=== PATIENT | female | born 1980 | race Caucasian/White ===

== ENCOUNTER 2018-12-13 18:30 | Emergency (ER) | payer BC, OTHER ==
[2018-12-13 18:45] VITALS: BP 138/92
--- NOTE | 2018-12-13 18:49 | UC ---
Dizzy HPI HPI Summary: The patient is a 38-year-old female that started feeling dizzy about 9 AM this morning. She has no vertigo. She has had some palpitations. His had some tremors. Had no nausea vomiting or diarrhea. She denies any headache. She denies any chest pain or shortness of breath. Eyes any recent illness. She denies any fever or chills. She went home early from work today. She took a 3 hour nap. He feels better. She still has some palpitations and dizziness. He denies any earache. She denies any ringing or roaring in her ears. Remote history of hyperthyroidism due to He's thyroiditis. She has not had her thyroid functions checked recently. Denies any history of anemia. - History Of Current Complaint Chief Complaint: UCDizziness Stated Complaint: DIZZY/SHAKY Time Seen by Provider: 12/13/18 18:48 Hx Obtained From: Patient Hx Last Menstrual Period: bleeds 3 weeks q month Onset/Duration: Gradual Onset, Lasting Hours Timing: Constant Severity Initially: Moderate Severity Currently: Mild Pain Intensity: 0 Pain Scale Used: 0-10 Numeric Character: Lightheaded, Weak, Dizzy Aggravating Factor(s): Supine To Erect Alleviating Factor(s): Lying Down Associated Signs And Symptoms: Positive: Palpitations. Negative: Nausea, Vomiting, Diaphoresis, Tinnitus, Chest Pain, SOB, Unsteady Gait, Visual Changes , Decreased Oral Intake, Change In Medication, Change In Diet, OTC Medications - Allergies/Home Medications Allergies/Adverse Reactions: Allergies Allergy/AdvReac Type Severity Reaction Status Date / Time Penicillins Allergy GI Upset Verified 12/13/18 18:35 Home Medications: Home Medications Etonogestrel [Nexplanon] 68 mg IMPLANT ONCE 12/13/18 [History Confirmed 12/13/18 ] PMH/Surg Hx/FS Hx/Imm Hx Previously Healthy: Yes Endocrine History: Hyperthyroidism - remote hx - Surgical History Surgical History: None - Family History Known Family History: Positive: Cardiac Disease, Hypertension, Diabetes - Social History Alcohol Use: Rare Substance Use Type: None Smoking Status (MU): Heavy Every Day Tobacco Smoker Type: Cigarettes Amount Used/How Often: 1/2 ppd Review of Systems All Other Systems Reviewed And Are Negative: Yes Constitutional: Positive: Fatigue Skin: Positive: Negative Eyes: Positive: Negative ENT: Positive: Negative Respiratory: Positive: Negative Cardiovascular: Positive: Palpitations Gastrointestinal: Positive: Negative Genitourinary: Positive: Negative Motor: Positive: Negative Neurovascular: Positive: Negative Musculoskeletal: Positive: Negative Neurological: Positive: Weakness Psychological: Positive: Negative Physical Exam Triage Information Reviewed: Yes Appearance: Well-Appearing, No Pain Distress, Well-Nourished Vital Signs: Initial Vital Signs Temp 98 F 12/13/18 18:36 Pulse 63 12/13/18 18:36 Resp 18 12/13/18 18:36 BP 120/67 12/13/18 18:36 Pulse Ox 99 12/13/18 18:36 Vital Signs Reviewed: Yes Eyes: Positive: Conjunctiva Clear ENT: Positive: Hearing grossly normal, TMs normal, Uvula midline. Negative: Nasal congestion, Nasal drainage, Tonsillar swelling, Tonsillar exudate, Trismus , Muffled voice, Hoarse voice, Dental tenderness, Sinus tenderness Dental Exam: Normal Neck: Positive: Supple, Nontender, No Lymphadenopathy, Other: - no thyromegaly Respiratory: Positive: Lungs clear, Normal breath sounds, No respiratory distress, No accessory muscle use Cardiovascular: Positive: RRR, No Murmur Musculoskeletal: Positive: ROM Intact, No Edema Neurological: Positive: Alert, Muscle Tone Normal, Fatigued, Other: - slight tremors, non focal neurologic exam Skin Exam: Normal Diagnostics - EKG Cardiac Rate: NL Cardiac Rhythm: Sinus: Normal Ectopy: None ST Segment: Normal Dizzy Course/Dx - Course Course Of Treatment: neg orthostatics - Differential Dx/Diagnosis Provider Diagnosis: Dizziness, nonspecific, Palpitations Discharge - Sign-Out/Discharge Documenting (check all that apply): Patient Departure All imaging exams completed and their final reports reviewed: No Studies - Discharge Plan Condition: Stable Disposition: HOME Patient Education Materials: Heart Palpitations (ED), Dizziness (ED) Forms: *Work Release Referrals: Katie Maurice MD [Primary Care Provider] - 1 Day (if not better) Additional Instructions: to er for new or worsening symptoms EKG was normal - Billing Disposition and Condition Condition: STABLE Disposition: Home
[2018-12-14 10:59] LABS: ABS Basophils 0.1 10^3/ul (0-0.2); ABS Eosinophils 0.4 10^3/ul (0-0.6); ABS Lymphocytes 2.2 10^3/ul (1.0-4.8); ABS Monocytes 0.8 10^3/ul (0-0.8); ABS Neutrophils 5.4 10^3/ul (1.5-7.7); ABS Nucleated RBC 0 10^3/ul; Eosinophil % 4.1 %; Hematocrit 43 % (35-47); Mean Corpuscular HGB Conc 35 g/dl (31-36); Mean Corpuscular Hemoglobin 34 pg (27-31); Mean Corpuscular Volume 97 fL (80-97); Mean Platelet Volume 10.1 fL (7.4-10.4); Nucleated Red Blood Cells % 0.1; Platelet Count 250 10^3/ul (150-450); Red Blood Count 4.45 10^6/ul (4.00-5.40); Red Cell Distribution Width 13 % (10.5-15); White Blood Count 8.9 10^3/ul (3.5-10.8)
[2018-12-14 11:05] LABS: Calcium 9.4 mg/dL (8.6-10.3); Potassium 3.7 mmol/L (3.5-5.0)
[2018-12-14 11:10] LABS: BUN/Creatinine Ratio 12.9 (8-20); EGFR African American 91.6 (>60); EGFR Non-African American 75.7 (>60)
[2018-12-14 11:31] LABS: TSH (Thyroid Stimulating Horm) 31.1 mcIU/mL (0.34-5.60)
--- NOTE | 2018-12-15 07:22 | UC ---
- Progress Note Progress Note: Reviewed labs from 12/13/18 - Elevated TSH. Needs more labs and follow up with PCP as soon as possible for work up for hypothyroidism. If dizziness and/or palpiatations worsen go the ER for further work up. Remaining labs unremarkable - Results/Orders Results/Orders: TSH: 31 Course/Dx - Diagnoses Provider Diagnoses: Dizziness, nonspecific, Palpitations Discharge - Sign-Out/Discharge Documenting (check all that apply): Post-Discharge Follow Up All imaging exams completed and their final reports reviewed: No Studies - Discharge Plan Condition: Stable Disposition: HOME Patient Education Materials: Heart Palpitations (ED), Dizziness (ED) Forms: *Work Release Referrals: Katie Maurice MD [Primary Care Provider] - 1 Day (if not better) Additional Instructions: to er for new or worsening symptoms EKG was normal - Billing Disposition and Condition Condition: STABLE Disposition: Home
== END 2018-12-13 19:20 | disposition home or self-care (01) ==
LOC: UCCORT 18:30
DX: R42 Dizziness and giddiness (principal); R00.2 Palpitations; R25.1 Tremor, unspecified; F17.210 Nicotine dependence, cigarettes, uncomplicated; Z88.0 Allergy status to penicillin; Z86.39 Personal history of other endocrine, nutritional and metabolic disease
CPT/HCPCS: 36415; 80048; 84443; 85025; 93005; 99212; G0463

== ENCOUNTER 2019-08-23 09:50 | Emergency (ER) | payer BC ==
[2019-08-23 09:59] VITALS: BP 114/67
--- NOTE | 2019-08-23 10:08 | UC ---
Palpitation/Dysrhythmia HP - HPI Summary HPI Summary: 39-year-old female presents with 3 day history of feeling dizzy and lightheaded with occasional episodes of palpitations that will last for several minutes. States she has had similar episodes in the past but none have ever lasted this long. States they typically will resolve after a few minutes to a couple of hours. She has a history of tachycardia unknown origin for which she takes propanolol. Denies fever, chills, headache, visual disturbances, facial droop, slurred or difficulty speaking, weakness, numbness, tingling of the extremities , chest pain, shortness of breath, abdominal pain, nausea, vomiting, or diarrhea. - History of Current Complaint Chief Complaint: UCGeneralIllness Stated Complaint: DIZZY Time Seen by Provider: 08/23/19 10:02 Hx Obtained From: Patient Hx Last Menstrual Period: 08/09/19 Pain Intensity: 0 - Allergy/Home Medications Allergies/Adverse Reactions: Allergies Allergy/AdvReac Type Severity Reaction Status Date / Time Penicillins Allergy GI Upset Verified 08/23/19 09:59 Home Medications: Home Medications ALPRAZolam [Alprazolam] 0.25 mg PO TID PRN 08/23/19 [History Confirmed 08/23/19] Levothyroxine Sodium [Synthroid] 50 mcg PO DAILY 08/23/19 [History Confirmed 01/10] Propranolol HCl 10 mg PO BID 08/23/19 [History Confirmed 08/23/19] PMH/Surg Hx/FS Hx/Imm Hx Endocrine History: Thyroid Disease Cardiovascular History: Other - Tachycardia - Surgical History Surgical History: None - Family History Known Family History: Positive: Cardiac Disease, Hypertension, Diabetes - Social History Occupation: Employed Full-time Lives: With Family Alcohol Use: Rare Substance Use Type: None Smoking Status (MU): Heavy Every Day Tobacco Smoker Type: Cigarettes Amount Used/How Often: 1/2 ppd Review of Systems All Other Systems Reviewed And Are Negative: Yes Constitutional: Negative: Fever, Chills Eyes: Negative: Blurred Vision, Diplopia, Photophobia ENT: Negative: Sore Throat, Ear Ache, Nasal Discharge, Sinus Congestion, Sinus Pain/Tenderness Respiratory: Negative: Shortness Of Breath, Cough Cardiovascular: Positive: Palpitations. Negative: Chest Pain Gastrointestinal: Negative: Abdominal Pain, Vomiting, Diarrhea, Nausea Genitourinary: Positive: Negative Musculoskeletal: Positive: Negative Neurological: Negative: Headache, Weakness, Paresthesia, Numbness Is Patient Immunocompromised?: No Physical Exam - Summary Physical Exam Summary: GENERAL APPEARANCE: Well developed, well nourished, alert and cooperative, and appears to be in no acute distress. EYES: Conjunctiva clear. No drainage. PERRL, EOM intact. Vision is grossly intact. EARS: External auditory canals and tympanic membranes clear, hearing grossly intact. NOSE: No nasal discharge. THROAT: Pharynx normal No tonsilar inflammation, swelling, exudate, or lesions. Uvula midline. Oral cavity normal. Teeth and gingiva in good general condition. NECK: Neck supple, non-tender without lymphadenopathy. CARDIAC: Normal S1 and S2. No S3, S4 or murmurs. Rhythm is regular. There is no peripheral edema, cyanosis or pallor. Extremities are warm and well perfused. Capillary refill is less than 2 seconds. Peripheral pulses intact. LUNGS: Clear to auscultation without rales, rhonchi, wheezing or diminished breath sounds. ABDOMEN: Positive bowel sounds. Soft, nondistended, nontender. No guarding or rebound. No masses or hepatosplenomegally. MUSKULOSKELETAL: ROM intact to all extremities. No joint erythema or tenderness. Normal muscular development. Normal gait. NEUROLOGICAL: CN II-XII intact. Strength and sensation symmetric and intact throughout. SKIN: Skin normal color, texture and turgor with no lesions or eruptions. Triage Information Reviewed: Yes Vital Signs: Initial Vital Signs Temp 98 F 08/23/19 09:51 Pulse 72 08/23/19 09:51 Resp 16 08/23/19 09:51 BP 114/67 08/23/19 09:51 Pulse Ox 99 08/23/19 09:51 Vital Signs Reviewed: Yes Diagnostics - EKG Cardiac Rate: NL - Rate 72 Cardiac Rhythm: Sinus: Normal Ectopy: None ST Segment: Normal EKG Comparison: No Significant Change - 12/13/2018 Palpitations Course/Dx - Course Course Of Treatment: 39-year-old female presents with 3 day history of feeling dizzy and lightheaded with occasional episodes of palpitations that will last for several minutes. States she has had similar episodes in the past but none have ever lasted this long. States they typically will resolve after a few minutes to a couple of hours. She has a history of tachycardia unknown origin for which she takes propanolol. Denies fever, chills, headache, visual disturbances, facial droop, slurred or difficulty speaking, weakness, numbness, tingling of the extremities , chest pain, shortness of breath, abdominal pain, nausea, vomiting, or diarrhea. Afebrile. Vital signs stable. Patient was neurologically intact and her exam was overall unremarkable. Twelve-lead EKG showed a normal sinus rhythm at a rate of 72 without ectopy, ST elevation, or T-wave abnormalities. This is unchanged from her previous EKG on 12/13/2018 when she presented for similar symptoms. Discussed with the patient that with her history of thyroid disease and tachycardia that we were not able to adequately assessing her symptoms at this facility at this time and I'm recommending that she be evaluated in the emergency room. She is agreeable to this and has elected to transport via private vehicle. - Differential Dx/Diagnosis Differential Diagnosis/HQI/PQRI: Medication Induced, Panic Disorder, Paroxymal SVT, V-Tach Provider Diagnosis: Dizziness, Palpitations Discharge ED - Sign-Out/Discharge Documenting (check all that apply): Patient Departure All imaging exams completed and their final reports reviewed: No Studies - Discharge Plan Condition: Stable Disposition: HOME-RECOMMEND TO ED Patient Education Materials: Heart Palpitations (ED) Referrals: Katie Maurice MD [Primary Care Provider] - Additional Instructions: We are unable to evaluate you adequately at this facility for the potential causes of your symptoms. I am recommending that you be evaluated in the emergency room at this time. Please go directly to the emergency room from here. - Billing Disposition and Condition Condition: STABLE Disposition: Home-Recommend to ED
== END 2019-08-23 10:25 | disposition home health service (06) ==
LOC: UCCORT 09:50
DX: R42 Dizziness and giddiness (principal); R00.2 Palpitations; R00.0 Tachycardia, unspecified; E07.9 Disorder of thyroid, unspecified; F17.210 Nicotine dependence, cigarettes, uncomplicated; Z88.0 Allergy status to penicillin; Z79.890 Hormone replacement therapy
CPT/HCPCS: 93005; 99212; G0463

== ENCOUNTER 2019-10-05 15:56 | Emergency (ER) | payer BC ==
[2019-10-05 16:09] VITALS: BP 127/76
--- NOTE | 2019-10-05 16:15 | UC ---
Throat Pain/Nasal Fady HPI - HPI Summary HPI Summary: 39-year-old female with a sore throat over the past few days. Denies any fever or chills. No nausea vomiting or diarrhea. She is a smoker. - History of Current Complaint Chief Complaint: UCGeneralIllness Stated Complaint: SORE THROAT Time Seen by Provider: 10/05/19 16:00 Hx Obtained From: Patient Hx Last Menstrual Period: 1 week ?: No Onset/Duration: Gradual Onset Severity: Mild Pain Intensity: 7 Cough: None Associated Signs & Symptoms: Positive: Negative Related History: Smoking - Allergies/Home Medications Allergies/Adverse Reactions: Allergies Allergy/AdvReac Type Severity Reaction Status Date / Time Penicillins Allergy GI Upset Verified 10/05/19 16:11 PMH/Surg Hx/FS Hx/Imm Hx Previously Healthy: Yes Endocrine History: Thyroid Disease - Surgical History Surgical History: None - Family History Known Family History: Positive: Cardiac Disease, Hypertension, Diabetes - Social History Lives: With Family Alcohol Use: Rare Substance Use Type: None Smoking Status (MU): Heavy Every Day Tobacco Smoker Type: Cigarettes Amount Used/How Often: 1/2 ppd Review of Systems All Other Systems Reviewed And Are Negative: Yes ENT: Positive: Sore Throat Is Patient Immunocompromised?: No Physical Exam Triage Information Reviewed: Yes Appearance: Well-Appearing, No Pain Distress, Well-Nourished Vital Signs: Initial Vital Signs Temp 98.7 F 10/05/19 16:06 Pulse 77 10/05/19 16:06 Resp 16 10/05/19 16:06 BP 127/76 10/05/19 16:06 Pulse Ox 99 10/05/19 16:06 Vital Signs Reviewed: Yes Eyes: Positive: Conjunctiva Clear ENT: Positive: Hearing grossly normal, Pharyngeal erythema - Minimal pharyngeal erythema., TMs normal, Uvula midline Neck: Positive: Supple, Nontender, No Lymphadenopathy Respiratory: Positive: Lungs clear, Normal breath sounds, No respiratory distress, No accessory muscle use Cardiovascular: Positive: RRR, No Murmur, Pulses Normal, Brisk Capillary Refill Musculoskeletal Exam: Normal Neurological Exam: Normal Psychological Exam: Normal Skin Exam: Normal Throat Pain/Nasal Course/Dx - Course Course Of Treatment: Rapid strep test negative. - Differential Dx/Diagnosis Provider Diagnosis: Pharyngitis Discharge ED - Sign-Out/Discharge Documenting (check all that apply): Patient Departure All imaging exams completed and their final reports reviewed: No Studies - Discharge Plan Condition: Good Disposition: HOME Patient Education Materials: Pharyngitis (ED) Referrals: Katie Maurice MD [Primary Care Provider] - Additional Instructions: Increase fluids, warm saltwater gargles, throat lozenges. Definite follow-up in 4 or 5 days if no improvement or if worsening symptoms. - Billing Disposition and Condition Condition: GOOD Disposition: Home
== END 2019-10-05 16:23 | disposition home or self-care (01) ==
LOC: UCEAST 15:56
DX: J02.9 Acute pharyngitis, unspecified (principal); F17.210 Nicotine dependence, cigarettes, uncomplicated; Z88.0 Allergy status to penicillin
CPT/HCPCS: 87651; 99211; G0463

== ENCOUNTER 2019-12-06 16:32 | Emergency (ER) | payer BC ==
[2019-12-06 16:52] VITALS: BP 139/86
[2019-12-06 17:12] LABS: Influenza A Molecular NEGATIVE (Negative); Influenza B Molecular NEGATIVE (Negative)
--- NOTE | 2019-12-06 17:27 | UC ---
HPI Febrile Illness - HPI Summary HPI Summary: per imaging science professor: "Since yesterday pt c/o nausea, vomitting, diarrhea and hot/cold chills on/off. Emesis x6 yesterday and emesis x3 this morning; dry-heaving since emesis ended. States diarrhea is improving and stool is more formed. Able to keep fluids down. Taking ibuprofen 400mg prn; last dose today 1200. Pt's cousin +flu last week. " -here w/ her 8 & 10 yr old dtrs. -no blood in stool or blood. -last v/d in 10 hrs. starting to feel better - History of Current Complaint Chief Complaint: UCGI Time Seen by Provider: 12/06/19 16:55 Hx Last Menstrual Period: last week of OCT 2019 Pain Intensity: 5 - Allergy/Home Medications Allergies/Adverse Reactions: Allergies Allergy/AdvReac Type Severity Reaction Status Date / Time Penicillins Allergy GI Upset Verified 12/06/19 16:47 PMH/Surg Hx/FS Hx/Imm Hx Previously Healthy: Yes - Surgical History Surgical History: None - Family History Known Family History: Positive: Cardiac Disease, Hypertension, Diabetes - Social History Alcohol Use: Rare Substance Use Type: None Smoking Status (MU): Heavy Every Day Tobacco Smoker Type: Cigarettes Amount Used/How Often: 1/2 ppd Review of Systems All Other Systems Reviewed And Are Negative: Yes Constitutional: Positive: Chills, Fatigue Skin: Positive: Negative. Negative: Rash Eyes: Positive: Negative ENT: Positive: Sore Throat Respiratory: Negative: Shortness Of Breath, Cough Cardiovascular: Positive: Negative. Negative: Palpitations, Chest Pain Gastrointestinal: Positive: Abdominal Pain - from voiting - reports it's muscular, Vomiting, Diarrhea, Nausea Genitourinary: Positive: Negative Motor: Positive: Negative Neurovascular: Positive: Negative Musculoskeletal: Positive: Negative Neurological: Positive: Negative Psychological: Positive: Negative Is Patient Immunocompromised?: No Physical Exam Appearance: Ill-Appearing - mild - moderate Vital Signs: Initial Vital Signs Temp 99 F 12/06/19 16:47 Pulse 85 12/06/19 16:47 Resp 16 12/06/19 16:47 BP 139/86 12/06/19 16:47 Pulse Ox 98 12/06/19 16:47 Vital Signs Reviewed: Yes Eye Exam: Normal ENT Exam: Normal ENT: Positive: Pharynx normal, TMs normal Neck exam: Normal Neck: Positive: Supple, Nontender, No Lymphadenopathy Respiratory Exam: Normal Respiratory: Positive: Lungs clear, Normal breath sounds, No respiratory distress, No accessory muscle use. Negative: Crackles, Rhonchi, Stridor, Wheezing Cardiovascular Exam: Normal Cardiovascular: Positive: RRR Abdominal Exam: Normal Abdomen Description: Positive: Nontender, Soft. Negative: CVA Tenderness (R), CVA Tenderness (L), Distended, Guarding Bowel Sounds: Positive: Present Musculoskeletal Exam: Normal Neurological Exam: Normal Psychological Exam: Normal Skin Exam: Normal Course/Dx - Course Course Of Treatment: -Influenza negative -viral gastroenteritis that is improving. zofran z 1 here and rx for home. focus on hydration. -zofran ODT x 1 here. w/ rx for home -OOW today and tomorrw -go to ER with lightheaded, dizziness, fevers or decr UOP - Febrile Illness Differential Diagnoses: GI Disease - Diagnoses Provider Diagnosis: Gastroenteritis Discharge ED - Sign-Out/Discharge Documenting (check all that apply): Patient Departure All imaging exams completed and their final reports reviewed: No Studies - Discharge Plan Condition: Stable Disposition: HOME Prescriptions: Ondansetron ODT TAB* [Zofran 4 MG Odt TAB*] 4 mg PO Q6H PRN 3 Days #10 tab.odt PRN Reason: Nausea Patient Education Materials: Gastroenteritis (ED) Forms: *Work Release Referrals: No Primary Care Phys,NOPCP [Primary Care Provider] - [facility] [place] [facility]FERR[facility] [Outside] - 5 Days Additional Instructions: Drink plenty of fluids (gatorade & water) and get plenty of rest. You should be urinating at least every 8 hours. Your goal is to have frequent urine that is light in color to show that you are well hydrated. -Your blood pressure is slightly elevated. You should have this rechecked. - Billing Disposition and Condition Condition: STABLE Disposition: Home
[2019-12-06] MEDS ORDERED: Ondansetron ODT TAB* 4 MG PO ONE (17:33)
== END 2019-12-06 17:49 | disposition home or self-care (01) ==
LOC: UCCORT 16:32
DX: K52.9 Noninfective gastroenteritis and colitis, unspecified (principal); R53.83 Other fatigue; J02.9 Acute pharyngitis, unspecified; F17.210 Nicotine dependence, cigarettes, uncomplicated; Z88.0 Allergy status to penicillin
CPT/HCPCS: 99212; A9270-GY; G0463